=== PATIENT | female | born 1985 | race Caucasian/White ===

== ENCOUNTER 2016-09-20 10:22 | Emergency (ER) | payer OTHER ==
[~2016-09-20 10:22] MED LIST: Vitamin D; prenatal vitamins
[2016-09-20 10:42] VITALS: BP 158/100; PULSE 100; RESP 18; O2SAT 100
[2016-09-20 11:47] LABS: Mean Corpuscular Hemoglobin 29.3 pg (27.0-35.0); Mean Corpuscular Volume 85.7 fL (81-100)
--- NOTE | 2016-09-20 12:30 | ED.REPORT ---
HPI-Abd Pain F Under 41 Date of Service Sep 20, 2016 ED Provider: Kennedy Taylor DO Ms. Katya Husain is a very pleasant 30-year-old female with past medical history significant for IBS, internal hemorrhoids, and 1 year diagnosis of lupus as well as mitochondrial myopathy and her mother grandmother and aunt, patient is yet to be tested, who presents to the [facility] emergency Department for reports of bright red blood on toilet paper as well as 2 day illness on Saturday through Saturday of abdominal cramping, bloating, fever and chills, vomiting and diarrhea. She reports all symptoms had subsided by Saturday evening when she had diarrhea with flecks of blood in the stool. She reports she went to urgent care this morning for bright red blood on her toilet paper after a formed soft stool that she describes as dark in color, and they advised she visit the emergency department. Nursing Notes Stated Complaint: POSS FOOD POISONING/RECTAL BLEEDING Chief Complaint: Female Abdominal Pain Nursing Notes Reviewed: Yes Allergies: Coded Allergies: No Known Allergies (Unverified Allergy, Unknown, 09/20/16) Scheduled ([ vitamins]) DAILY Miscellaneous Medications ([Vitamin D]) General Time Seen by MD: 11:15 Chief Complaint Rectal bleeding Sudden in Onset?: Yes Review of Systems Review of Systems Note: A comprehensive review of systems was conducted with the patient and found to be negative except as above in the History of Present Illness. Complete sys rev & neg: except as marked. Physical Exam General: Very pleasant young lady sitting in bed and now acute distress, well- developed, well-nourished, appropriately interactive HEENT: Normocephalic, atraumatic. External ears without defect. Pupils equal, round, and reactive to light and accommodation. Anicteric sclerae, moist conjunctivae, and no lid lag. Oropharynx free of erythema and cobble stoning with moist mucosa. Neck: Supple with full range of motion. No jugular venous distension. No bruits. No lymphadenopathy or thyromegaly. Cardiovascular: Regular rate and rhythm with no murmurs, rubs, or gallops appreciated Pulmonary: Clear to auscultation bilaterally with no crackles, wheezes, or rhonchi. Normal respiratory effort with no use of accessory muscles. Abdomen: Bowel tones present. Soft, nontender, nondistended. No hepatosplenomegaly or masses appreciated. Extremities: No clubbing, cyanosis, edema, or lymphadenopathy appreciated. Skin: Normal temperature, turgor, and texture; no rash, ulcers, or subcutaneous nodules appreciated. Neurological: Cranial nerves grossly intact. Normal muscle strength, tone, and bulk. Reflexes, coordination, and sensory function within normal limits. No known gait impairment. Psychiatric: Normal mood and affect. Alert and oriented to person, place, and time. Initial Vital Signs Vital Signs (First) Date Time Temp Pulse Resp B/P Pulse Ox O2 Delivery O2 Flow Rate FiO2 09/20/16 10:42 36.4 100 18 158/100 100 Room Air Interpretation & Diagnostics Lab Results Interpretation Result Diagram: 09/20/16 1135 09/20/16 1135 Test 09/20/16 11:35 09/20/16 11:44 09/20/16 12:00 White Blood Count 6.8th/mm3 (3.8-10.1) Red Blood Count 4.74mil/mm3 (3.90-5.20) Hemoglobin 13.9g/dL (12.0-15.6) Hematocrit 40.6% (35.0-46.0) Mean Corpuscular Volume 85.7fL (81-100) Mean Corpuscular Hemoglobin 29.3pg (27.0-35.0) Mean Corpuscular Hemoglobin Concent 34.2% (32.0-37.0) Red Cell Distribution Width 12.6% (12.3-15.4) Platelet Count 206bil/L (150-400) Sodium Level 137mEq/L (134-144) Potassium Level 4.0mEq/L (3.5-5.2) Chloride Level 101mEq/L (97-108) Carbon Dioxide Level 20mmol/L (18-29) Blood Urea Nitrogen 17mg/dL (6-20) Creatinine 0.44mg/dL (0.57-1.00) Estimat Glomerular Filtration Rate 242mL/min (>59) Glucose Level 85mg/dL (60-99) Calcium Level 9.1mg/dL (8.5-10.1) Total Bilirubin 1.3mg/dL (0.0-1.2) Aspartate Amino Transf (AST/SGOT) 23U/L (0-50) Alanine Aminotransferase (ALT/SGPT) 18U/L (0-32) Alkaline Phosphatase 43U/L (25-150) Total Protein 7.2g/dL (6.4-8.4) Albumin 4.2g/dL (3.4-5.0) Hold Adhikari Top Tube Received (Received) Hold Urine Received (Received) Procedures Procedure Notes: Digital rectal exam and guaiac stool performed. The external rectum was negative for masses, fissures, external hemorrhoids. Normal sphincter tone. 3-6 cm thrombosed internal hemorrhoid palpated 3 cm deep on the left side. Very mildly tender to digital rectal exam. Stool in the rectal vault was brown very small amount of bright red blood. Guaiac stool positive. Re-Eval/Medical Decision Med Decision/Clinical Course Med Decision/Clinical Course: Initial foster 30-year-old with lupus IBS internal hemorrhoids presents with bright red blood per rectum after nausea vomiting fevers chills 3 days prior. Abdominal exam was completely benign no tenderness no masses no lymphadenopathy. Digital rectal exam no masses externally no fissures present and palpable left-sided 3-6 cm thrombosed hemorrhoid was present, which patient says is not new. Her hemoglobin was 13.9 and she denies dizziness, syncope, headache, change in vision. She says she feels quite well but is worried about the blood on toilet paper, again she says is not new. 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 She is currently moved here from [place] and does not have primary care, we advised that she establish primary care soon to address the situation plus overload or pending medical issues. She was given instructions to call the emergency department if she sees large amounts of bright red blood per rectum, melena and dark stools, recurrence of severe abdominal pain, nausea, vomiting, fevers, chills. Discharge & Departure Shift Change Sign-Out Response to Therapy: Unchanged Primary Impression: Internal hemorrhoid, bleeding Disposition: Home Discharge Condition All VS Reviewed: Yes Condition: Stable Additional Instructions: During you visit to [facility] Emergency Department we obtained blood work for infectious markers, hemoglobin levels, and electrolytes. All your lab values were within normal limits. Performed a digital rectal exam which showed no fissures no external hemorrhoids however there was an internal hemorrhoid on the left side, which likely is the source of bright red blood. We recommend to take Preparation H suppositories as well as a laxative. - The Preparation H suppository will help with constriction of the internal hemorrhoid as well as minor lubrication to prevent further bright red blood. - Take a laxative as needed for constipation, which will be helpful in controlling hemorrhoids.. Do not hesitate to call emergency services or your primary care physician if you experience any of the following. -High unrelenting fevers. -Uncontrolled vomiting. -Severe hypertension. -Syncope or loss of consciousness. -Chest pain or severe shortness of breath. -Severe abdominal pain. -Very dark stools and uncontrolled bright red blood in or around stool. Establish care and follow-up with your primary care physician in 1-2 weeks time following your emergency department visit for medication checks and general well -being. Referrals: OTHER,PHYSICIAN (PCP) Attending Statment The patient was seen and examined together with Dr. Smith on 09/20/16 and I have added additional information to the note above. CASSY SMITH DO Sep 20, 2016 12:30 Kennedy Taylor DO Sep 20, 2016 13:09
[2016-09-20 12:46] VITALS: BP 139/95; PULSE 90; RESP 16; O2SAT 98
== END 2016-09-20 12:48 | disposition home or self-care (01) ==
LOC: SED 10:22
DX: K64.8 Other hemorrhoids (principal); R50.9 Fever, unspecified; R11.10 Vomiting, unspecified
CPT/HCPCS: 36415; 80053; 81025; 85027; 96372; 99284; J2060